=== PATIENT | male | born 1965 | race Caucasian/White ===

== ENCOUNTER 2018-03-26 04:28 | Inpatient (IN) | payer OTHER ==
[2018-03-26] MEDS: NALOXONE (0.4 MG/ML) INJ IV (05:30)
[2018-03-26] MEDS: SOD CHLORIDE 0.9% 1,000 ML IV ×2 (05:31→08:14)
[2018-03-26] MEDS: ALBUTEROL 0.083% (NEB) 2.5 MG/3 ML AMP NEB (05:35)
[2018-03-26] MEDS: IPRATROPIUM (NEB) 0.5 MG/2.5 ML AMP NEB (05:36)
[2018-03-26 05:45] LABS: ADD UMIC YES; UR ASCORBIC ACID NEGATIVE (NEGATIVE); UR BILIRUBIN (Dip) NEGATIVE (NEGATIVE); UR BLOOD (Dip) 1+ mg/dL (NEGATIVE); UR CLARITY CLEAR (CLEAR); UR COLOR YELLOW (YELLOW); UR GLUCOSE (Dip) NEGATIVE (NEGATIVE); UR KETONES (Dip) NEGATIVE (NEGATIVE); UR LEUKOCYTE ESTERASE (Dip) NEGATIVE Leu/ul (NEGATIVE); UR MUCUS FEW /HPF (NONE SEEN); UR NITRITE (Dip) NEGATIVE (NEGATIVE); UR RBC 8 /HPF (0-5); UR SPECIFIC GRAVITY (Dip) 1.025 (1.003-1.030); UR TOTAL PROTEIN (Dip) NEGATIVE (NEGATIVE); UR UROBILINOGEN (Dip) NEGATIVE (NEGATIVE); UR WBC 2 /HPF (0-5)
[2018-03-26 05:58] LABS: BARBITURATES Negative (NEGATIVE); BENZODIAZEPINES Positive (NEGATIVE); CANNABINOIDS Negative (NEGATIVE); COCAINE Negative (NEGATIVE); OPIATES Negative (NEGATIVE)
[2018-03-26 06:04] LABS: AMPHETAMINE/METHAMPHETAMINE POSITIVE (NEGATIVE)
[2018-03-26] MEDS: HALOPERIDOL 5 MG INJ IM (06:12)
[2018-03-26 06:29] LABS: ABNORMAL IP MESSAGE 1; HEMATOCRIT 54.7 % (42.0-52.0); HEMOGLOBIN 17.4 g/dl (14.0-18.0); MEAN CORPUSCULAR HEMOGLOBIN 32.2 pg (29.0-33.0); MEAN CORPUSCULAR HGB CONC 31.8 g/dl (32.0-37.0); MEAN CORPUSCULAR VOLUME 101.1 fl (82.0-101.0); MEAN PLATELET VOLUME 10.6 fl (7.4-10.4); PLATELET COUNT 399 10^3/UL (140-415); POSITIVE DIFF @See below; RED BLOOD COUNT 5.41 10^6/ul (4.70-6.10); RED CELL DISTRIBUTION WIDTH 13.2 % (11.5-14.5)
[2018-03-26 06:40] LABS: ADD MAN DIFF? YES
[2018-03-26 06:43] LABS: ALANINE AMINOTRANSFERASE 402 IU/L (13-69); ALBUMIN 4.9 g/dl (3.3-4.9); ALBUMIN/GLOBULIN RATIO 1.25; ALKALINE PHOSPHATASE 71 IU/L (42-121); ANION GAP 18 (5-13); ASPARTATE AMINO TRANSFERASE 671 IU/L (15-46); BILIRUBIN,INDIRECT 0.1 mg/dl (0-1.1); BILIRUBIN,TOTAL 0.1 mg/dl (0.2-1.3); BLOOD UREA NITROGEN 39 mg/dl (7-20); CALCIUM 8.3 mg/dl (8.4-10.2); CARBON DIOXIDE 21 mmol/L (21-31); CHLORIDE 103 mmol/L (97-110); CREATININE 3.04 mg/dl (0.61-1.24); Estimated GFR 22 mL/min (>60); GLUCOSE 122 mg/dl (70-220); SODIUM 142 mmol/L (135-144); TOTAL PROTEIN 8.8 g/dl (6.1-8.1)
[2018-03-26 06:48] LABS: ACETAMINOPHEN < 10.0 ug/ml (10.0-30.0); ETHANOL < 10.0 mg/dl (0-0); SALICYLATE < 1.0 mg/dl (5.0-30.0)
[2018-03-26 06:53] LABS: POTASSIUM 7.2 mmol/L (3.5-5.1)
[2018-03-26 07:39] LABS: BAND NEUTROPHILS #M 2.3 10^3/ul (0.0-0.6); BAND NEUTROPHILS % (M) 7 % (0-4); GIANT THROMBO% (M) 3 % (0-0); LYMPHOCYTES % (M) 3 % (15-51); MONOCYTE #M 0.3 10^3/ul (0.3-0.9); MONOCYTES % (M) 1 % (0-11); PLATELET ESTIMATE NORMAL; POIKILOCYTOSIS 1+ (0-0); SEGMENTED NEUTROPHILS (M) % 89 % (39-77)
[2018-03-26 07:48] LABS: ADD MAN DIFF? NO
[2018-03-26 07:51] LABS: ABNORMAL IP MESSAGE 1; BASOPHIL # 0.1 10^3/ul (0.0-0.1); BASOPHILS % 0.3 % (0.0-2.0); EOSINOPHILS # 0.1 10^3/ul (0.0-0.5); EOSINOPHILS % 0.3 % (0.0-7.0); HEMATOCRIT 54.7 % (42.0-52.0); HEMOGLOBIN 17.7 g/dl (14.0-18.0); LYMPHOCYTES # 0.8 10^3/ul (0.8-2.9); LYMPHOCYTES % 2.7 % (15.0-51.0); MEAN CORPUSCULAR HEMOGLOBIN 31.9 pg (29.0-33.0); MEAN CORPUSCULAR HGB CONC 32.4 g/dl (32.0-37.0); MEAN CORPUSCULAR VOLUME 98.7 fl (82.0-101.0); MEAN PLATELET VOLUME 10.2 fl (7.4-10.4); MONOCYTE # 1.4 10^3/ul (0.3-0.9); MONOCYTES % 4.7 % (0.0-11.0); NEUTROPHIL # 27.5 10^3/ul (1.6-7.5); PLATELET COUNT 333 10^3/UL (140-415); POSITIVE DIFF @See below; RED BLOOD COUNT 5.54 10^6/ul (4.70-6.10); RED CELL DISTRIBUTION WIDTH 13.2 % (11.5-14.5)
[2018-03-26 07:51] LABS: WHITE BLOOD COUNT 30.5 10^3/ul (4.8-10.8)
[2018-03-26] MEDS ORDERED: DEXTROSE 50% 50 ML SYRINGE (08:05)
[2018-03-26] MEDS: ALBUTEROL 0.5% (NEB) 2.5 MG/0.5 ML AMP INH (08:08)
[2018-03-26 08:09] LABS: ANION GAP 23 (5-13); BLOOD UREA NITROGEN 42 mg/dl (7-20); CALCIUM 8.3 mg/dl (8.4-10.2); CARBON DIOXIDE 18 mmol/L (21-31); CHLORIDE 105 mmol/L (97-110); CREATININE 3.18 mg/dl (0.61-1.24); Estimated GFR 20 mL/min (>60); GLUCOSE 119 mg/dl (70-220); SODIUM 146 mmol/L (135-144)
[2018-03-26] MEDS: NA BICARBONATE 8.4% 50 ML SYG IV (08:14)
[2018-03-26 08:16] LABS: POTASSIUM 7.3 mmol/L (3.5-5.1)
[2018-03-26] MEDS: INSULIN REGULAR, HUMAN 100 UNIT/1 ML 3ML VIAL IVP (08:18)
[2018-03-26] MEDS: DEXTROSE 50% 50 ML SYRINGE IV ×3 (08:32→15:44)
[2018-03-26 08:42] LABS: BAND NEUTROPHILS #M 3.9 10^3/ul (0.0-0.6); BAND NEUTROPHILS % (M) 13 % (0-4); GIANT THROMBO% (M) 3 % (0-0); LYMPHOCYTES #M 0.6 10^3/ul (0.8-2.9); LYMPHOCYTES % (M) 2 % (15-51); MONOCYTE #M 0.6 10^3/ul (0.3-0.9); MONOCYTES % (M) 2 % (0-11); PLATELET ESTIMATE NORMAL; POLYCHROMASIA 1+ (0-0); SEG NEUT #M 26.5 10^3/ul (1.6-7.5); SEGMENTED NEUTROPHILS (M) % 83 % (39-77); SMUDGE%M 7 % (0-0); SPHEROCYTES 1+ (0-0)
[2018-03-26] MEDS: CA CHLORIDE 10% 10 ML SYRINGE IV (09:01)
[2018-03-26 09:22] LABS: CREATINE KINASE 41804 IU/L (23-200)
[2018-03-26] MEDS ORDERED: NACL 0.9% 3 ML SYG IV (09:30)
[2018-03-26] MEDS ORDERED: NALOXONE (0.4 MG/ML) INJ IV (09:30)
[2018-03-26] MEDS ORDERED: DOCUSATE SODIUM 100 MG CAP PO (09:30)
[2018-03-26] MEDS ORDERED: ALBUTEROL/IPRATROPIUM (NEB) 3 ML AMP NEB (09:30)
[2018-03-26] MEDS ORDERED: ACETAMINOPHEN 650MG/20.3ML CUP PO (09:30)
[2018-03-26] MEDS ORDERED: IPRATROPIUM (NEB) 0.5 MG/2.5 ML AMP NEB (09:30)
[2018-03-26] MEDS ORDERED: VANCOMYCIN IV PER PHARMACY XX (09:30)
[2018-03-26] MEDS: NA POLYST SULFON 15 GM/60 ML BTL PO (09:46)
[2018-03-26] MEDS: FAMOTIDINE 20 MG INJ IV ×2 (09:52→21:01)
[2018-03-26] MEDS: PIPER-TAZO 3.375 GM IV (PMX) 100 ML IVPB ×2 (10:05→18:18)
[2018-03-26] MEDS: MIDAZOLAM 1 MG/ML 5 ML INJ IV (10:23)
[2018-03-26 10:32] LABS: AADO2 Arterial 608.2 mmHg (7.0-24.0); Allen Test ACCEPTAB; Arterial Base Excess -9.6 mmol/L (-3.0-3); Arterial COHb 0.7 % (0.0-3.0); Arterial MetHb 0.5 % (0.0-1.5); Arterial pCO2 50.8 mmhg (35-45); MODE MASK - NRB; Site Left Radial
[2018-03-26] MEDS: SODIUM BICARBONATE (IV ADD) 150 MEQ in DEXTROSE 5% 1,000 ML IV ×2 (11:14→21:38)
[2018-03-26] MEDS: LIDOCAINE 1% (MPF) 5 ML VIAL SC (11:15)
[2018-03-26] MEDS: VANCOMYCIN 1.75 GM in SOD CHLORIDE 0.9% 500 ML IVPB (11:39)
[2018-03-26 11:54] LABS: ALANINE AMINOTRANSFERASE 383 IU/L (13-69); ALBUMIN 3.8 g/dl (3.3-4.9); ALBUMIN/GLOBULIN RATIO 1.15; ALKALINE PHOSPHATASE 55 IU/L (42-121); ANION GAP 13 (5-13); BILIRUBIN,INDIRECT 0.1 mg/dl (0-1.1); BILIRUBIN,TOTAL 0.1 mg/dl (0.2-1.3); BLOOD UREA NITROGEN 47 mg/dl (7-20); CALCIUM 7.7 mg/dl (8.4-10.2); CARBON DIOXIDE 21 mmol/L (21-31); CHLORIDE 107 mmol/L (97-110); Estimated GFR 23 mL/min (>60); GLUCOSE 133 mg/dl (70-220); SODIUM 141 mmol/L (135-144); TOTAL PROTEIN 7.1 g/dl (6.1-8.1)
[2018-03-26 12:01] LABS: LACTIC ACID 4.9 mmol/L (0.5-2.0)
[2018-03-26 12:17] LABS: ASPARTATE AMINO TRANSFERASE 927 IU/L (15-46)
[2018-03-26] MEDS: LACTATED RINGER'S 1,000 ML IV (12:26)
[2018-03-26 19:21] LABS: ADD UMIC YES; UR ASCORBIC ACID NEGATIVE (NEGATIVE); UR BACTERIA FEW /HPF (NONE SEEN); UR BILIRUBIN (Dip) NEGATIVE (NEGATIVE); UR BLOOD (Dip) 3+ mg/dL (NEGATIVE); UR CALCIUM OXALATE CRYSTAL MODERATE /HPF (NONE SEEN); UR CLARITY CLOUDY (CLEAR); UR COLOR AMBER (YELLOW); UR GLUCOSE (Dip) NEGATIVE (NEGATIVE); UR GRANULAR CAST FEW /HPF (NONE SEEN); UR KETONES (Dip) NEGATIVE (NEGATIVE); UR LEUKOCYTE ESTERASE (Dip) NEGATIVE Leu/ul (NEGATIVE); UR MUCUS MODERATE /HPF (NONE SEEN); UR NITRITE (Dip) NEGATIVE (NEGATIVE); UR RBC 86 /HPF (0-5); UR SPECIFIC GRAVITY (Dip) 1.024 (1.003-1.030); UR TOTAL PROTEIN (Dip) 1+ mg/dl (NEGATIVE); UR UROBILINOGEN (Dip) NEGATIVE (NEGATIVE); UR WBC 11 /HPF (0-5)
[2018-03-26 19:23] LABS: ANION GAP 10 (5-13); BLOOD UREA NITROGEN 55 mg/dl (7-20); CALCIUM 7.3 mg/dl (8.4-10.2); CARBON DIOXIDE 21 mmol/L (21-31); CHLORIDE 109 mmol/L (97-110); CREATININE 3.47 mg/dl (0.61-1.24); Estimated GFR 18 mL/min (>60); GLUCOSE 103 mg/dl (70-220); POTASSIUM 4.4 mmol/L (3.5-5.1); SODIUM 140 mmol/L (135-144)
[2018-03-26] MEDS: HALOPERIDOL 5 MG INJ IV ×2 (19:26→23:44)
[2018-03-26 19:31] LABS: SODIUM,URINE RANDOM 153 mmol/L (30-90)
[2018-03-26 19:35] LABS: CREATININE,URINE RANDOM 175.76 mg/dl (20-370); PROTEIN/CREAT RATIO 0.42 RATIO
[2018-03-26] MEDS: HEPARIN 5,000 UNIT/1 ML VIAL SC (21:02)
[2018-03-27] MEDS: HALOPERIDOL 5 MG INJ IV ×3 (01:48→10:28)
[2018-03-27] MEDS: PIPER-TAZO 3.375 GM IV (PMX) 100 ML IVPB ×3 (01:48→18:03)
[2018-03-27 01:51] LABS: AADO2 Arterial 585.1 mmHg (7.0-24.0); Allen Test ACCEPTAB; Arterial Base Excess -4.5 mmol/L (-3.0-3); Arterial Blood Gas Oxygen Sat 97.4 mmHG (95.0-98.0); Arterial COHb 0.2 % (0.0-3.0); Arterial Fraction of Oxyhgb 96.7 % (93.0-99.0); Arterial HCO3 20.3 mmol/L (22.0-26.0); Arterial MetHb 0.5 % (0.0-1.5); Blood Gas IEPAP 15/5; MODE MASK - BIPAP; Site Right Radial
[2018-03-27] MEDS: ACCU-CHEK XX (02:00)
[2018-03-27 05:48] LABS: HEMATOCRIT 40.1 % (42.0-52.0); HEMOGLOBIN 13.6 g/dl (14.0-18.0); MEAN CORPUSCULAR HEMOGLOBIN 32.2 pg (29.0-33.0); MEAN CORPUSCULAR HGB CONC 33.9 g/dl (32.0-37.0); MEAN PLATELET VOLUME 10.8 fl (7.4-10.4); PLATELET COUNT 196 10^3/UL (140-415); POSITIVE DIFF @See below; RED BLOOD COUNT 4.22 10^6/ul (4.70-6.10); RED CELL DISTRIBUTION WIDTH 13.4 % (11.5-14.5)
[2018-03-27 05:48] LABS: WHITE BLOOD COUNT 14.9 10^3/ul (4.8-10.8)
[2018-03-27 05:54] LABS: ADD MAN DIFF? YES
[2018-03-27 06:07] LABS: INR 1.82; PROTIME 21.2 Sec (11.9-14.9); PT RATIO 1.7
[2018-03-27 06:08] LABS: PARTIAL THROMBOPLASTIN TIME 43.5 Sec (23.0-35.0)
[2018-03-27 06:08] LABS: URIC ACID 10.6 mg/dl (3.1-7.9)
[2018-03-27 06:31] LABS: ALANINE AMINOTRANSFERASE 309 IU/L (13-69); ALBUMIN/GLOBULIN RATIO 1.11; ALKALINE PHOSPHATASE 48 IU/L (42-121); ANION GAP 12 (5-13); ASPARTATE AMINO TRANSFERASE 718 IU/L (15-46); BILIRUBIN,INDIRECT 0.3 mg/dl (0-1.1); BILIRUBIN,TOTAL 0.3 mg/dl (0.2-1.3); BLOOD UREA NITROGEN 62 mg/dl (7-20); CARBON DIOXIDE 21 mmol/L (21-31); CHLORIDE 105 mmol/L (97-110); CREATININE 3.86 mg/dl (0.61-1.24); Estimated GFR 16 mL/min (>60); GLUCOSE 101 mg/dl (70-220); POTASSIUM 4.5 mmol/L (3.5-5.1); SODIUM 138 mmol/L (135-144); TOTAL PROTEIN 5.7 g/dl (6.1-8.1)
[2018-03-27 06:57] LABS: MAGNESIUM 1.6 mg/dl (1.7-2.5)
[2018-03-27 07:09] LABS: CREATINE KINASE 27983 IU/L (23-200)
[2018-03-27] MEDS: FAMOTIDINE 20 MG INJ IV ×2 (09:09→20:30)
[2018-03-27] MEDS: HEPARIN 5,000 UNIT/1 ML VIAL SC ×2 (09:12→20:35)
[2018-03-27] MEDS: SODIUM BICARBONATE (IV ADD) 150 MEQ in DEXTROSE 5% 1,000 ML IV ×2 (09:12→19:07)
[2018-03-27 09:22] LABS: ANISOCYTOSIS 1+ (0-0); BAND NEUTROPHILS #M 6.8 10^3/ul (0.0-0.6); BAND NEUTROPHILS % (M) 46 % (0-4); BURR CELLS 1+ (0-0); LYMPHOCYTES #M 0.5 10^3/ul (0.8-2.9); LYMPHOCYTES % (M) 4 % (15-51); METAMYELOCYTES #M 0.7 10^3/ul (0.0-0.0); METAMYELOCYTES %M 5 % (0-0); MONOCYTE #M 0.5 10^3/ul (0.3-0.9); MONOCYTES % (M) 4 % (0-11); MYELOCYTES #M 0.4 10^3/ul (0.0-0.0); MYELOCYTES % (M) 3 % (0-0); PLATELET ESTIMATE NORMAL; POIKILOCYTOSIS 1+ (0-0); REACTIVE LYMPHOCYTES #M 0.2 10^3/ul (0.0-0.0); REACTIVE LYMPHOCYTES% (M) 2 % (0-0); SEG NEUT #M 6.4 10^3/ul (1.6-7.5); SEGMENTED NEUTROPHILS (M) % 36 % (39-77); SMUDGE%M 2 % (0-0)
[2018-03-27] MEDS: ONDANSETRON 4 MG INJ IV (10:27)
[2018-03-27] MEDS: MAGNESIUM SULFATE 2 GM/50 ML 50 ML IVPB (11:00)
[2018-03-27] MEDS: ALLOPURINOL 100 MG TAB PO (11:03)
[2018-03-27] MEDS: LISINOPRIL 20 MG TAB PO (23:21)
[2018-03-28] MEDS ORDERED: VANCOMYCIN 1.75 GM in SOD CHLORIDE 0.9% 500 ML IVPB ×2
[2018-03-28] MEDS: METOPROLOL 50 MG TAB PO ×3 (00:38→12:53)
[2018-03-28] MEDS: DILTIAZEM 60 MG TAB PO ×3 (00:38→12:54)
[2018-03-28] MEDS: METOCLOPRAMIDE (1 MG/ML) 10 ML CUP PO ×3 (00:39→12:54)
[2018-03-28] MEDS: PIPER-TAZO 3.375 GM IV (PMX) 100 ML IVPB ×2 (01:29→10:27)
[2018-03-28] MEDS: ACCU-CHEK XX (01:33)
[2018-03-28] MEDS: SODIUM BICARBONATE (IV ADD) 150 MEQ in DEXTROSE 5% 1,000 ML IV (03:29)
[2018-03-28] MEDS: HALOPERIDOL 5 MG INJ IV ×2 (05:50→08:35)
[2018-03-28 06:19] LABS: VANCOMYCIN,RANDOM 8.9 ug/ml
[2018-03-28] MEDS: QUETIAPINE 25 MG TAB PO (08:37)
[2018-03-28] MEDS: ALLOPURINOL 100 MG TAB PO (08:38)
[2018-03-28] MEDS: LISINOPRIL 20 MG TAB PO (08:38)
[2018-03-28] MEDS: TIOTROPIUM 18 MCG CAPSULE INHA DEV INH (08:38)
[2018-03-28] MEDS: ASPIRIN (EC) 325 MG TAB PO (08:39)
[2018-03-28] MEDS: HEPARIN 5,000 UNIT/1 ML VIAL SC (08:47)
[2018-03-28 10:48] LABS: ANION GAP 8 (5-13); BLOOD UREA NITROGEN 71 mg/dl (7-20); CALCIUM 6.8 mg/dl (8.4-10.2); CARBON DIOXIDE 31 mmol/L (21-31); CHLORIDE 98 mmol/L (97-110); Estimated GFR 19 mL/min (>60); GLUCOSE 101 mg/dl (70-220); POTASSIUM 3.2 mmol/L (3.5-5.1); SODIUM 137 mmol/L (135-144)
[2018-03-28] MEDS: SOD CHLORIDE 0.9% 1,000 ML IV (11:00)
[2018-03-28 11:28] LABS: CK INDEX 0.2; CREATINE KINASE 10763 IU/L (23-200)
[2018-03-28] MEDS: POTASSIUM CHLORIDE 100 ML IVPB (12:52)
[2018-03-29 10:40] LABS: AADO2 Arterial 160.6 mmHg (7.0-24.0); Allen Test ACCEPTAB; Arterial Base Excess 0.8 mmol/L (-3.0-3); Arterial COHb 0.2 % (0.0-3.0); Arterial Fraction of Oxyhgb 88.5 % (93.0-99.0); Arterial HCO3 24.4 mmol/L (22.0-26.0); Arterial MetHb 0.4 % (0.0-1.5); MODE NASAL CANNULA; Site Left Radial
== END 2018-03-28 15:12 | disposition short-term general hospital (02) | DRG 917 ==
LOC: 6WM 03-28 00:15 → ICU 03-27 08:00 → E/R 04:28 → ICU 08:44
DX: T43.621A Poisoning by amphetamines, accidental (unintentional), initial encounter (principal); J96.01 Acute respiratory failure with hypoxia; M62.82 Rhabdomyolysis; N17.9 Acute kidney failure, unspecified; R41.82 Altered mental status, unspecified; E87.5 Hyperkalemia; E83.42 Hypomagnesemia; I10 Essential (primary) hypertension; G89.29 Other chronic pain; M54.9 Dorsalgia, unspecified
CPT/HCPCS: 36415; 36600; 71045; 76700; 80048; 80053; 80202; 80307; 81001; 81003; 82550; 82553; 82570; 82803; 82962; 83605; 83735; 84300; 84484; 84560; 85025; 85610; 85730; 87040; 87081; 89190; 93005; 94640; 94660; 94664; 96361; 96374; 99285-25